=== PATIENT | female | born 1995 | race African-American/Black ===

== ENCOUNTER 2017-01-12 08:09 | Inpatient (IN) ==
[2017-01-12] MEDS ORDERED: MAGNESIUM SULF RIDER 100 ML IV ONE ×2 (08:56→09:05)
[2017-01-12] MEDS ORDERED: MAGNESIUM SULF DRIP 40 GM/1,000 ML ML IV ONE (08:56)
[2017-01-12] MEDS ORDERED: ONDANSETRON 4 MG/2 ML VIAL IV PRN ×2 (09:05→15:49)
[2017-01-12] MEDS ORDERED: BETAMETH SODIUM PHOS/ACETATE 30 MG/5 ML VIAL IM SCH (09:30)
[2017-01-12] MEDS ORDERED: AMPICILLIN INJ 2,000 MG in SODIUM CHLORIDE 0.9% 100 ML IV SCH (09:30)
[2017-01-12] MEDS ORDERED: MAGNESIUM SULF DRIP 40 GM/1,000 ML ML IV SCH (09:30)
[2017-01-12] MEDS ORDERED: LACTATED RINGERS 1,000 ML IV SCH (09:30)
[2017-01-12 09:39] LABS: Basophils % 0.4 % (0.0-0.8); Eosinophils # 0.2 10*3/uL (0.0-0.87); Eosinophils % 2.1 % (0.00-10.9); Hematocrit 33.8 VOL% (35.7-47.0); Hemoglobin 11.3 GM/DL (12.0-16.0); Immature Granulocytes % 3.9 %; Immature Granulocytes Absolute 0.42 #; Lymphocytes # 3.4 10*3/uL (1.4-4.0); Lymphocytes % 31.6 % (21.3-54.2); Mean Corpuscular HGB Conc 33.4 GM/DL (32-36); Mean Corpuscular Hemoglobin 31 PG (27-34); Mean Corpuscular Volume 91.4 FL (87-102); Mean Platelet Volume 10.9 FL (9.6-12.0); Monocytes # 0.9 10*3/uL (0.11-0.8); Neutrophils # 5.8 10*3/uL (1.4-7.4); Platelet Count 268 T/CUMM (130-400); Red Cell Distribution Width 13.3 % (9.3-17.3); White Blood Count 10.8 T/CUMM (4-12)
[2017-01-12 09:42] LABS: Apearance,Urine Cloudy (Clear); Bacteria,Urine Many /HPF (Few); RBC,Urine 13121 /HPF (0-4); Squamous Epithelial Cell,Urine Occasional /HPF (0-10); Urine Color Red (Yellow); Urine Specific Gravity 1.005 (1.001-1.035)
[2017-01-12 09:43] LABS: Bilirubin,Urine Negative (Negative); Blood, Urine Large mg/dL (Negative); Glucose,Urine (UA) Negative (Negative); Ketones,Urine Negative (Negative); Nitrite,Urine Negative (Negative); Protein,Urine 100 MG/DL; Urine Urobilinogen 0.2 EU/DL (0.2-1.0)
[2017-01-12] MEDS ORDERED: ERYTHROMYCIN INJ 500 MG in SODIUM CHLORIDE 0.9% 100 ML IV SCH (10:00)
[2017-01-12] MEDS: BUTORPHANOL 2 MG/ML VIAL IV PRN ×2 (10:07→12:34)
[2017-01-12 10:12] LABS: Alanine Aminotransferase 39 U/L (13-56); Albumin 2.8 G/DL (3.4-5.0); Alkaline Phosphatase 133 U/L (45-117); Aspartate Amino Transferase 33 U/L (0-37); Bilirubin,Total < 0.39 MG/DL (0.2-1.0); Blood Urea Nitrogen 3 MG/DL (7-18); Calcium 9.1 MG/DL (8.5-10.1); Glucose 106 MG/DL (74-106); Osmolality,Calculated 277.3 MOS/KG (273-304); Potassium 4.2 MMOL/L (3.5-5.1); Sodium 141 MMOL/L (136-145); Total Protein 6.9 G/DL (6.4-8.3)
[2017-01-12 10:31] LABS: Rubella Antibody IgG 25.1 IU/ML
--- NOTE | 2017-01-12 11:18 | Ultrasound Report ---
Exam: US OB >= 14 weeks fetus Date: 01/12/2017 9:10 AM Indication: Premature rupture of membranes, pelvic pain. Reported gestational age 33 weeks 5 days Comparison: None available Findings: Single fetus in cephalic presentation with cardiac activity. Heart rate is regular at 126 bpm. Placenta is fundal with no previa. BPD: 8.24 cm; 33/1 Head circumference: 31.18 cm; 34/6 Abdominal circumference: 30.16 cm; 34/1 Femur length: 6.3 cm; 32/4 Amniotic fluid index: 11.4 cm, which is normal Estimated weight: 2251 g or 4 lbs. 15 oz., which corresponds to the 41st percentile for growth Cervical length: 2.1 cm structures: four-chamber heart, stomach, kidneys, bladder, three-vessel cord and cord insertion appear within normal limits. Spine not well visualized but appears grossly normal. Maternal ovaries no visualized due to gestation. Ultrasound images were captured and stored. Impression: 1. Intrauterine gestation with cardiac activity. Estimated gestational age by today's ultrasound of 33 weeks 5 days with due date of 02/25/2017. Reported gestational age 33 weeks 5 days and due date of 02/25/2017. 2. Normal amniotic fluid volume. Cervix foreshortening measuring 2.1 cm is suggested although the cervix is not well visualized. 3. Limited structural survey as detailed above. PROCEDURE INTERPRETED AT [facility] DEPARTMENT OF RADIOLOGY Final Report Signed by: Cullen Mueller
--- NOTE | 2017-01-12 11:28 | OB/GYN History & Physical ---
History of Present Illness Chief complaint: Leakage of fluid and contractions History of present illness: Ms. Quintero is a 21 year old female at 33 5/7 weeks who presented to L&D this morning grossly ruptured with regular contractions. Pt reports noticing loss of fluid at 0700. No complications with this . No Pmhx or Surg Hx. Explained to the patient that the goal is for her to maintain the until 34 weeks. She is receiving steroids and abx. Pt verbalized understanding. Home Medications Medication Instructions Recorded Confirmed Type Pnv No.122/Iron/Folic Acid 1 tablet PO DAILY 12/31/16 01/12/17 History [ Multi Tablet] Allergies Allergy/AdvReac Type Severity Reaction Status Date / Time No Known Allergies Allergy Verified 02/26/16 15:32 Medical,Surgical,& Family Hx - Medical History Genitourinary: History of: Recurring Urinary Tract Infections - Surgical History Thoracic Surgeries: Patient denies;: Organ Transplant Neurologic Surgeries: Patient denies: Neurologic Surgery HEENT Surgeries: Patient denies: Tonsilectomy & Adenoidectomy - Social History Smoking Status: Never smoker Frequency of Alcohol Use: None 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 Contractions initially q 2-3 now 4-5 minutes.) Assessment and Plan (1) 33 weeks gestation of Status: Acute Current Visit: Yes (2) premature rupture of membranes (PPROM) with onset of labor after 24 hours of rupture in first trimester, antepartum Status: Acute Assessment and plan: HD#1 at 33 5/7 weeks BTMZ x 2 Magnesium therapy Antibiotic prophylaxis Infection and drug screen Current Visit: Yes Results - Labs CBC & BMP: 01/12/17 09:28 01/12/17 09:28
[2017-01-12] MEDS ORDERED: AZITHROMYCIN 250 MG TABLET PO ONE (11:32)
[2017-01-12 11:52] LABS: Barbiturates Screen,Urine Negative (Negative); Benzodiazepines Screen,Urine Negative (Negative); Cannabinoid Screen,Urine Positive (Negative); Opiate Screen,Urine Negative (Negative); Phencyclidine Screen,Urine Negative (Negative)
[2017-01-12] MEDS ORDERED: OXYTOCIN/LR 20 UNIT/1,000 ML BAG IV ONE ×3 (14:20→16:00)
[2017-01-12] MEDS ORDERED: MEPERIDINE 50 MG/1 ML VIAL IV ONE (14:40)
[2017-01-12] MEDS ORDERED: oxyCODONE/ACETAMINOPHEN 5-325 MG TABLET PO PRN ×2 (15:49)
[2017-01-12] MEDS ORDERED: WITCH HAZEL PADS 100/JAR TOP PRN (15:49)
[2017-01-12] MEDS ORDERED: HYDROCORTISONE 2.5% RECTAL CREAM 30 GM TUBE TOP PRN (15:49)
[2017-01-12] MEDS ORDERED: BISACODYL 10 MG SUPP RECTAL PRN (15:49)
[2017-01-12] MEDS ORDERED: LANOLIN 50% CREAM 0.3 OZ TUBE TOP PRN (15:49)
[2017-01-12] MEDS ORDERED: BENZOCAINE 20%/MENTHOL 0.5% SPRAY 56 GM CAN TOP PRN (15:49)
[2017-01-12] MEDS ORDERED: DIPH/TET/ACEL PERT BOOSTER VACCINE 0.5 ML VIAL IM ONE (15:55)
--- NOTE | 2017-01-12 15:56 | Event Note ---
DELIVERY NOTE of female in cephalic presentation. Pt presented to L&D ~0830 this morning in labor. 3 cm on admission. Received BTMZ x 1 and antibiotics. Also received magnesium sulfate to no avail. Pt progressed to complete and delivered after pushing for ~ 5 minutes. NICU present for delivery. 5 lbs 6 oz with APGARS of 6/7. Spontaneous intact placenta. EBL 300 cc. Right periurethral tear hemostatic. Mom well, baby taken to NICU
[2017-01-12] MEDS ORDERED: RHO(D) IMMUNE GLOBULIN 300 MCG SYRINGE IM ONE (15:59)
[2017-01-12] MEDS ORDERED: MEASLES/MUMPS/RUBELLA VACCINE 0.5 ML VIAL SUBCUT ONE (15:59)
[2017-01-12] MEDS: IBUPROFEN 800 MG TABLET PO SCH (19:25)
[2017-01-12] MEDS: DOCUSATE SODIUM 100 MG CAPSULE PO SCH (20:20)
[2017-01-12] MEDS ORDERED: miSOPROStol 200 MCG TABLET RECTAL ONE (21:10)
[2017-01-13] MEDS: IBUPROFEN 800 MG TABLET PO SCH ×2 (04:09→15:10)
[2017-01-13 05:45] LABS: Basophils % 0.1 % (0.0-0.8); Eosinophils % 0.1 % (0.00-10.9); Hematocrit 29.8 VOL% (35.7-47.0); Hemoglobin 9.7 GM/DL (12.0-16.0); Immature Granulocytes % 2.1 %; Immature Granulocytes Absolute 0.47 #; Lymphocytes # 2.4 10*3/uL (1.4-4.0); Lymphocytes % 10.8 % (21.3-54.2); Mean Corpuscular HGB Conc 32.6 GM/DL (32-36); Mean Corpuscular Hemoglobin 30 PG (27-34); Mean Corpuscular Volume 93.4 FL (87-102); Mean Platelet Volume 10.5 FL (9.6-12.0); Monocytes # 1.7 10*3/uL (0.11-0.8); Monocytes % 7.8 % (1.7-12.7); Neutrophils # 17.7 10*3/uL (1.4-7.4); Neutrophils % 79.1 % (38.7-73.9); Platelet Count 268 T/CUMM (130-400); Red Blood Count 3.19 MC/CUMM (3.8-5.5); Red Cell Distribution Width 13.2 % (9.3-17.3); White Blood Count 22.4 T/CUMM (4-12)
[2017-01-13 06:13] LABS: Band Neutrophils 1 % (0-10); Lymphocytes 6 % (20-55); Segmented Neutrophils 89 % (50-85); Total Cells Counted 100
[2017-01-13 06:14] LABS: Hypochromasia 1+; Platelet Estimate Normal
[2017-01-13] MEDS: FERROUS SULFATE 325 MG TABLET PO SCH ×2 (09:17→20:40)
[2017-01-13] MEDS: DOCUSATE SODIUM 100 MG CAPSULE PO SCH ×2 (09:17→20:40)
--- NOTE | 2017-01-13 11:12 | OB/GYN Progress Note ---
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 - Constitutional Vitals: Vital Signs Temp Pulse Resp BP Pulse Ox 01/13/17 07:08 97.7 F 76 18 110/83 97 01/13/17 04:09 98.8 F 71 20 109/77 96 01/13/17 00:15 97.4 F L 84 20 107/67 100 01/12/17 20:20 97.3 F L 82 18 111/75 97 01/12/17 19:20 97.5 F L 74 16 110/64 98 01/12/17 18:19 84 20 122/69 99 01/12/17 17:20 98 H 20 126/74 99 01/12/17 16:50 91 H 20 119/75 99 01/12/17 16:20 97.8 F 99 H 20 140/88 100 01/12/17 12:00 96.8 F L General appearance: no acute distress, over weight - Head Head exam: Present: normocephalic - Eye Eye exam: Present: EOMI Pupils: Present: BYRON - GI/Abdominal GI/Abdominal exam: Present: soft. Absent: tenderness Results - Labs CBC & BMP: 01/13/17 05:29 01/12/17 09:28
[2017-01-14] MEDS: IBUPROFEN 800 MG TABLET PO SCH ×2 (08:30)
[2017-01-14] MEDS: FERROUS SULFATE 325 MG TABLET PO SCH (09:24)
[2017-01-14] MEDS: DOCUSATE SODIUM 100 MG CAPSULE PO SCH (09:24)
--- NOTE | 2017-01-14 10:20 | Pathology Report from [facility] ---
ACCESSION # : [id number] PATIENT NAME : Nancy Norman ORDERING DR : VILLA CAMPBELL MD CLINICAL HX: IUP @ 33.5 wks gestation w/PROM, active labor POST-OP DX: Same SPECIMEN INFO: Placenta GROSS DESCRIPTION: Received fresh labeled "NANCY NORMAN & PLACENTA" is a 468 gm placenta measuring 17.6 x 16.1 x 2.4 cm. The membranes are thickened walter and opaque with areas of clotted blood present. The umbilical cord is eccentrically inserted, contains three vessels and is 17.2 cm. The surface is blue ojeda with peripheral fibrinous areas measuring up to 2.8 cm. The maternal surface is hemorrhagic with adherent clotted blood and mildly disrupted cotyledons with fibrous deposits present and a few scattered areas of calcifications. Sections submitted A- membranes and cord, B- and maternal surfaces. DIAGNOSIS FOR NANCY NORMAN: Three vessel umbilical cord with acute funisitis.Acute chorioamnionitis.Third trimester placental chorionic villi with scattered microcalcifications and subchorionic fibrin deposition. SERVICE DATE: 01/13/2017 REPORT DATE: 01/14/2017 PATHOLOGIST: Royer Fowler M.D. [facility]
[2017-01-14 11:02] VITALS: BP 107/69
--- NOTE | 2017-01-14 11:11 | Discharge Summary ---
Hospital Course - Hospital Course Hospital Course: routine course. Pt feels good this morning, ready to go home Diagnosis - Discharge Diagnosis (1) 33 weeks gestation of Status: Acute (2) premature rupture of membranes (PPROM) with onset of labor after 24 hours of rupture in first trimester, antepartum Status: Acute (3) (normal spontaneous vaginal delivery) Status: Acute Specialty Discharge - Follow Up or Referrals Follow up with: Beverly Jennings MD [Physician] - Discharge Plan - Discharge Data Disposition: Disch To Home/Self Care Condition at Discharge: Stable Discharge Diet: advance to your usual diet Activity: other (routine ) Hygiene: may shower Weight Bearing at Discharge: full weight bearing Driving: no restrictions Contact your physician if you experience:: fever over 101, Difficulty voiding, Redness or swelling - Discharge Medications New Ibuprofen Tab [Motrin Tab] 800 mg PO Q8H #20 tablet No Action Pnv No.122/Iron/Folic Acid [ Multi Tablet] 1 tablet PO DAILY - Follow Up or Referral Follow Up: Beverly Jennings MD [Physician] - - Forms/Instructions Instructions: Perineal Care (DC), Vaginal Delivery (DC), Bleeding (DC) Exam - Constitutional Vitals: Period Temp Pulse Resp BP Sys/Desir Pulse Ox Last 24 Hr 96.7 F-98.5 F 75-95 16-20 96-114/57-75 97-100 General appearance: no acute distress, over weight - Head Head exam: Present: normal inspection - Eye Eye exam: Present: EOMI Pupils: Present: BYRON - GI/Abdominal GI/Abdominal exam: Present: soft. Absent: tenderness Discharge Results Labs on day of discharge: Labs from last 24 hours 01/12/17 11:55 T. vaginalis (JOSE) TNP DS: Provider Date of admission: 01/12/17 08:20 Primary care physician: Selena Rooney MD Attending physician on admission: Selena Rooney MD Consults: 01/12/17 09:07 Consult to Anesthesiology [CONS] Routine Consulting Provider: Reason for Anesthesiology: Epidural Consult Comment: Epidural for pain managment 01/12/17 15:49 Consult to Production Crew Supervisor [CONS] Routine Consult Production Crew Supervisor: Breast Feeding 01/12/17 22:50 Consult to Case Mgmt/Social Srvs [CONS] Routine Reason for Case Mgmt/Social Srvs: Other Consult Comment: + for Cannabinoids, in NICU Discharging clinician: Beverly Jennings MD
[2017-01-15] MEDS ORDERED: INFLUENZA VIRUS VACCINE 0.5 ML SYRINGE IM ONE (09:30)
[2017-01-18 18:24] LABS: Source URINE
== END 2017-01-14 18:00 | disposition home or self-care (01) | DRG 774 ==
LOC: N.LDOUT 08:09 → N.LD 10:00 → N.OB 16:14
PROVIDERS: ADMIT Obstetrics & Gynecology; ATTEND Obstetrics & Gynecology

== ENCOUNTER 2018-08-11 22:49 | Inpatient (IN) ==
[2018-08-12] MEDS ORDERED: PANTOPRAZOLE 40 MG VIAL IV STA (01:08)
[2018-08-12] MEDS ORDERED: ALUM/MAG/SIMETH/LIDO VISC 1:1 30 ML BOTTLE PO STA (01:08)
[2018-08-12 01:16] LABS: Basophils # 0.1 10*3/uL (0.0-0.2); Basophils % 0.4 % (0.0-0.8); Eosinophils # 0.1 10*3/uL (0.0-0.87); Eosinophils % 0.9 % (0.00-10.9); Hematocrit 39.4 VOL% (35.7-47.0); Hemoglobin 12.6 GM/DL (12.0-16.0); Immature Granulocytes % 0.5 %; Immature Granulocytes Absolute 0.06 #; Lymphocytes # 2.7 10*3/uL (1.4-4.0); Lymphocytes % 21.9 % (21.3-54.2); Mean Corpuscular Hemoglobin 29 PG (27-34); Mean Corpuscular Volume 91.6 FL (87-102); Mean Platelet Volume 10.2 FL (9.6-12.0); Monocytes # 0.7 10*3/uL (0.11-0.8); Neutrophils # 8.7 10*3/uL (1.4-7.4); Neutrophils % 70.3 % (38.7-73.9); Platelet Count 335 T/CUMM (130-400); Red Cell Distribution Width 14.4 % (9.3-17.3); White Blood Count 12.4 T/CUMM (4-12)
[2018-08-12 01:33] LABS: Albumin 3.8 G/DL (3.4-5.0); Bilirubin,Total 0.5 MG/DL (0.2-1.0); Calcium 9.1 MG/DL (8.5-10.1); Osmolality,Calculated 277.4 MOS/KG (273-304); Potassium 3.7 MMOL/L (3.5-5.1); Total Protein 8.4 G/DL (6.4-8.3)
[2018-08-12 02:02] LABS: Apearance,Urine CLEAR (Clear); Bacteria,Urine Occasional /HPF (Few); Bilirubin,Urine Negative (Negative); Blood, Urine Negative (Negative); Glucose,Urine (UA) Negative (Negative); Ketones,Urine Negative (Negative); Mucus,Urine Occasional /LPF (Occasional); Nitrite,Urine Negative (Negative); Protein,Urine Negative; Squamous Epithelial Cell,Urine Occasional /HPF (0-10); Urine Color Yellow (Yellow); Urine Urobilinogen < 2.0 EU/DL (0.2-1.0); WBC,Urine 2 /HPF (0-6)
[2018-08-12 03:30] LABS: Risk Ratio 3.33; VLDL CHOLESTEROL 11.2 MG/DL
[2018-08-12] MEDS ORDERED: ONDANSETRON 4 MG/2 ML VIAL IV PRN (04:26)
[2018-08-12] MEDS: POTASSIUM CHLORIDE INJ 10 MEQ in SODIUM CHLORIDE 0.45% 1,000 ML IV SCH ×2 (05:55→14:45)
[2018-08-12] MEDS: PIPERACILLIN/TAZOBACTAM 3,375 MG in SODIUM CHLORIDE 0.9% 100 ML IV SCH ×3 (05:56→20:23)
[2018-08-12] MEDS: PANTOPRAZOLE 40 MG VIAL IV SCH (12:39)
[2018-08-13] MEDS: POTASSIUM CHLORIDE INJ 10 MEQ in SODIUM CHLORIDE 0.45% 1,000 ML IV SCH ×5 (02:18→23:31)
[2018-08-13] MEDS: PIPERACILLIN/TAZOBACTAM 3,375 MG in SODIUM CHLORIDE 0.9% 100 ML IV SCH ×3 (04:40→20:52)
[2018-08-13 05:03] LABS: Basophils % 0.5 % (0.0-0.8); Eosinophils # 0.2 10*3/uL (0.0-0.87); Eosinophils % 3.3 % (0.00-10.9); Hematocrit 35.3 VOL% (35.7-47.0); Hemoglobin 11.1 GM/DL (12.0-16.0); Immature Granulocytes % 0.3 %; Immature Granulocytes Absolute 0.02 #; Lymphocytes % 40.5 % (21.3-54.2); Mean Corpuscular HGB Conc 31.4 GM/DL (32-36); Mean Corpuscular Hemoglobin 29 PG (27-34); Mean Platelet Volume 10.1 FL (9.6-12.0); Monocytes # 0.5 10*3/uL (0.11-0.8); Monocytes % 7.4 % (1.7-12.7); Neutrophils # 3.5 10*3/uL (1.4-7.4); Platelet Count 334 T/CUMM (130-400); Red Blood Count 3.88 MC/CUMM (3.8-5.5); White Blood Count 7.3 T/CUMM (4-12)
[2018-08-13 05:40] LABS: Albumin 2.9 G/DL (3.4-5.0); Bilirubin,Total 0.8 MG/DL (0.2-1.0); Calcium 8.1 MG/DL (8.5-10.1); Osmolality,Calculated 278.3 MOS/KG (273-304); Potassium 3.1 MMOL/L (3.5-5.1); Total Protein 6.8 G/DL (6.4-8.3)
[2018-08-13] MEDS: PANTOPRAZOLE 40 MG VIAL IV SCH (10:50)
[2018-08-13] MEDS ORDERED: POTASSIUM CHLORIDE 20 MEQ/15 ML UDCUP PO ONE (13:35)
[2018-08-13] MEDS: KETOROLAC 30 MG/1 ML VIAL IV PRN (19:26)
[2018-08-13] MEDS: MORPHINE 4 MG/1 ML VIAL IV PRN (20:53)
[2018-08-14] MEDS: PIPERACILLIN/TAZOBACTAM 3,375 MG in SODIUM CHLORIDE 0.9% 100 ML IV SCH ×2 (05:10→12:56)
[2018-08-14 07:07] LABS: Basophils % 0.4 % (0.0-0.8); Eosinophils # 0.3 10*3/uL (0.0-0.87); Eosinophils % 3.9 % (0.00-10.9); Hematocrit 36.8 VOL% (35.7-47.0); Hemoglobin 11.5 GM/DL (12.0-16.0); Immature Granulocytes % 0.3 %; Immature Granulocytes Absolute 0.02 #; Lymphocytes # 2.1 10*3/uL (1.4-4.0); Mean Corpuscular HGB Conc 31.3 GM/DL (32-36); Mean Corpuscular Hemoglobin 29 PG (27-34); Mean Corpuscular Volume 91.5 FL (87-102); Mean Platelet Volume 10.3 FL (9.6-12.0); Monocytes # 0.6 10*3/uL (0.11-0.8); Monocytes % 8.8 % (1.7-12.7); Neutrophils # 4.1 10*3/uL (1.4-7.4); Neutrophils % 57.6 % (38.7-73.9); Platelet Count 360 T/CUMM (130-400); Red Blood Count 4.02 MC/CUMM (3.8-5.5); Red Cell Distribution Width 13.7 % (9.3-17.3); White Blood Count 7.2 T/CUMM (4-12)
[2018-08-14 07:50] LABS: Albumin 3.2 G/DL (3.4-5.0); Bilirubin,Total 0.5 MG/DL (0.2-1.0); Calcium 8.8 MG/DL (8.5-10.1); Osmolality,Calculated 273.7 MOS/KG (273-304); Potassium 3.6 MMOL/L (3.5-5.1); Total Protein 7.4 G/DL (6.4-8.3)
[2018-08-14] MEDS ORDERED: TISSUE ADHESIVE 1 EACH APPLICATOR TOP ONE (08:05)
[2018-08-14] MEDS ORDERED: LIDOCAINE 1%/EPI INJ 20 ML VIAL ONE (08:05)
[2018-08-14] MEDS ORDERED: BUPIVACAINE MPF 0.25% /EPI 30 ML VIAL ONE (08:05)
[2018-08-14] MEDS: POTASSIUM CHLORIDE INJ 10 MEQ in SODIUM CHLORIDE 0.45% 1,000 ML IV SCH ×2 (08:06→12:14)
[2018-08-14] MEDS ORDERED: PROPOFOL 200 MG/20 ML VIAL IV ONE (10:09)
[2018-08-14] MEDS ORDERED: ONDANSETRON 4 MG/2 ML VIAL ONE ×2 (10:10→10:46)
[2018-08-14] MEDS ORDERED: fentaNYL 100 MCG/2 ML VIAL ONE (10:10)
[2018-08-14] MEDS ORDERED: SEVOFLURANE 1 UNIT/15 MINUTE INH ONE (10:10)
[2018-08-14] MEDS ORDERED: KETOROLAC 30 MG/1 ML VIAL ONE (10:10)
[2018-08-14] MEDS ORDERED: GLYCOPYRROLATE 0.4 MG/2 ML VIAL ONE ×2 (10:10)
[2018-08-14] MEDS ORDERED: PHENYLEPHRINE 1 MG/10 ML SYRINGE IV ONE (10:10)
[2018-08-14] MEDS ORDERED: MIDAZOLAM 2 MG/2 ML VIAL ONE (10:10)
[2018-08-14] MEDS ORDERED: ROCURONIUM 100 MG/10 ML VIAL IV ONE (10:11)
[2018-08-14] MEDS ORDERED: LACTATED RINGERS 1,000 ML IV ONE (10:11)
[2018-08-14] MEDS ORDERED: NEOSTIGMINE 10 MG/10 ML VIAL ONE (10:11)
[2018-08-14] MEDS ORDERED: HYDROmorphone 2 MG/1 ML VIAL ONE (10:46)
[2018-08-14] MEDS: HYDROmorphone 2 MG/1 ML VIAL IV PRN ×4 (10:50→11:11)
[2018-08-14] MEDS: PANTOPRAZOLE 40 MG VIAL IV SCH (12:56)
[2018-08-14] MEDS: MORPHINE 4 MG/1 ML VIAL IV PRN ×3 (12:59→20:20)
[2018-08-14] MEDS ORDERED: LEVOFLOXACIN INJ 500 MG in PREMIX 1 EACH IV SCH (15:00)
[2018-08-14] MEDS: KETOROLAC 30 MG/1 ML VIAL IV PRN (23:22)
[2018-08-15] MEDS: POTASSIUM CHLORIDE INJ 10 MEQ in SODIUM CHLORIDE 0.45% 1,000 ML IV SCH ×2 (00:41→10:03)
[2018-08-15 06:26] LABS: Basophils % 0.4 % (0.0-0.8); Eosinophils # 0.2 10*3/uL (0.0-0.87); Eosinophils % 2.5 % (0.00-10.9); Hematocrit 36.7 VOL% (35.7-47.0); Hemoglobin 11.5 GM/DL (12.0-16.0); Immature Granulocytes % 0.3 %; Immature Granulocytes Absolute 0.02 #; Lymphocytes # 2.5 10*3/uL (1.4-4.0); Lymphocytes % 31.2 % (21.3-54.2); Mean Corpuscular HGB Conc 31.3 GM/DL (32-36); Mean Corpuscular Hemoglobin 29 PG (27-34); Mean Corpuscular Volume 91.1 FL (87-102); Mean Platelet Volume 9.8 FL (9.6-12.0); Monocytes # 0.6 10*3/uL (0.11-0.8); Monocytes % 6.9 % (1.7-12.7); Neutrophils # 4.7 10*3/uL (1.4-7.4); Neutrophils % 58.7 % (38.7-73.9); Platelet Count 323 T/CUMM (130-400); Red Blood Count 4.03 MC/CUMM (3.8-5.5); Red Cell Distribution Width 13.7 % (9.3-17.3)
[2018-08-15 07:27] LABS: Albumin 2.9 G/DL (3.4-5.0); Bilirubin,Total 0.5 MG/DL (0.2-1.0); Calcium 8.1 MG/DL (8.5-10.1); Osmolality,Calculated 275.4 MOS/KG (273-304); Potassium 3.6 MMOL/L (3.5-5.1); Total Protein 6.8 G/DL (6.4-8.3)
[2018-08-15] MEDS: PANTOPRAZOLE 40 MG VIAL IV SCH (09:58)
[2018-08-15] MEDS: KETOROLAC 30 MG/1 ML VIAL IV PRN (10:00)
[2018-08-15 11:35] VITALS: BP 92/68
[2018-08-15] MEDS ORDERED: LEVOFLOXACIN 500 MG TABLET PO SCH (12:00)
[2018-08-16] MEDS ORDERED: PANTOPRAZOLE 40 MG TABLET PO SCH (09:00)
== END 2018-08-15 13:30 | disposition home or self-care (01) | DRG 418 ==
LOC: N.ED 22:49 → N.EDINP 08-12 04:18 → SUATTDRO 08-12 04:18 → N.3E 08-12 04:56
PROVIDERS: ADMIT Phlebology; ATTEND Internal Medicine
PROC: LAPCHOL (2018-08-14 08:39)